=== PATIENT | female | born 1965 | race Caucasian/White ===

== ENCOUNTER 2018-01-08 11:46 | Observation (INO) | payer BC ==
[2018-01-08] VITALS (8 sets, daily range): BP systolic 124–187; BP diastolic 65–105; Ht 162.6 cm; Wt 77.3 kg
[~2018-01-08] VITALS: Ht 162.6 cm; Wt 77.3 kg
--- NOTE | ~2018-01-08 | MORECARE ---
CASE MANAGEMENT DISCHARGE SUMMARY PATIENT: DELORIS JENNINGS UNIT: [id number] ADM DATE: 01/08/18 AGE: 52 : 67 SEX: F ROOM/BED: D.1459 AUTHOR: [place] MOORE PHYSICIAN: REFERRING PHYSICIAN: DARRIN LOUIE MD DATE OF SERVICE: 01/10/18 Discharge Plan Patient Name: DELORIS JENNINGS Facility: [facility]:[place] : 1965 Planned Disposition: Home Anticipated Discharge Date: 01/09/18 Discharge Date: 01/09/2018 Expected LOS: 1 Initial Reviewer: [email or web address] Initial Review Date: 01/10/2018 Generated: 01/10/18 10:06 am Patient Name: DELORIS JENNINGS Page [id number] at 0906 All edits/amendments must be made on the electronic document DICTATION DATE: 01/10/18904 GIS ANALYST: NEDRA 01/10/18904 RPT#: [id number] DC DATE:01/09/18 STATUS: DIS IN [facility] [address] [place] [address] END OF REPORT
--- NOTE | ~2018-01-08 | HEMODYNAMI ---
PATIENT:DELORIS JENNINGS MEDICAL RECORD: [id number] : 67 [facility] [id number] ADMISSION DATE: 01/08/18 Generatedon:01/09/201810:01 Patient name: DELORIS JENNINGS Patient #: [id number] SSN: : 1965 Date of study: 01/09/2018 Page: Of Hemodynamic Procedure Report Patient Data Patient Demographics Procedure consent was obtained First Name: DELORIS Gender: Female Last Name: MICHAELA : 1965 Middle Initial: L Age: 52 year(s) Patient #: [id number] Race: Unknown Additional ID: [id number] Contact details [address]: [address] [place] [address] State: [place] City: [place] Zip code: [address] Past Medical History Allergies Allergen Reaction Date Comments Reported Other allergy 01/09/2018 ZITHROMAX, CIPRO, CODEINE, MORPHINE, PCN, SULFA Admission Admission Data Admission Date: 01/08/2018 Admission Time: 15:29 Room #: D.2129 Height (in.): 77 Height (cm.): 195.58 Procedure Procedure Types Cath Procedure Diagnostic Procedure C LH w/Coronaries Procedure Description Procedure Date Procedure Date: 01/09/2018 Procedure Start Time: 9:44 Procedure End Time: 9:58 Procedure Staff Name Function Alberto Sotomayor MD Performing Physician Ana Dailey RT Monitor Sonia Matias RT Scrub Jose Antonio Scruggs RN Nurse Gallo Mack RN Baseball Winder Procedure Data Cath Procedure Fluoroscopy Diagnostic fluoroscopy Total fluoroscopy Time: 1.8 time: 1.8 min min Diagnostic fluoroscopy Total fluoroscopy dose: 448 dose: 448 mGy mGy Contrast Material Contrast Material Type Amount (ml) Isovue 300 60 Entry Location Entry Primary Successful Side Size Upsize Upsize Entry Closure Succes sful Closure Location (Fr) 1 (Fr) 2 (Fr) Remarks Device Remarks Femoral Right 5 Fr Exoseal artery Estimated blood loss: 5 ml Diagnostic catheters Device Type Used For End Catheter Placement MULTIPACK JL 4.0 5Fr Procedure catheter MULTIPACK 3DRC 5Fr Procedure catheter MULTIPACK Pigtail 5 Fr Procedure catheter Procedure Complications No complications Procedure Medications Medication Administration Route Dosage 0.9% NaCl I.V. 100 ml/hr Oxygen etCO2 Nasal cannula 2 l/min Heparin Flush Bag added to field 2 bags (1000units/500ml NS) Lidocaine 2% added to field 20 Versed I.V. 2 mg Fentanyl I.V. 100 mcg Versed I.V. 2 mg Fentanyl I.V. 50 mcg Hemodynamics Rest Heart Rate: 79 (bpm) Pressure Samples Time Site Value (mmHg) Purpose Heart Use Rate(bpm) 9:52 LV 127/-20,4 Snapshot 75 Gradients Valve Time Site Site Mean SEP/DFP Peak To Heart Use 1 2 (mmHg) (sec/min) Peak Rate (mmHg) (bpm) Aortic 9:52 LV AO 77 Snapshots Pre Cath Intra NCS Post Cath Vital Signs Time Heart Resp SPO2 etCO2 NIBP (mmHg) Rhythm Pain Sedation Rate (ipm) (%) (mmHg) Status Level (bpm) 9:31:23 75 20 100 0 162/101(132) NSR 0 (11) 10(A) , No pain 9:35:39 74 29 100 0 165/92(134) NSR 0 (11) 10(A) , No pain 9:40:01 68 17 100 0 140/82(119) NSR 0 (11) 10(A) , No pain 9:44:13 70 19 100 0 131/82(106) NSR 0 (11) 10(A) , No pain 9:48:23 71 15 99 0 119/77(93) NSR 0 (11) 9(A) , No pain 9:52:29 76 15 100 0 123/72(89) NSR 0 (11) 9(A) , No pain 9:56:35 73 15 100 0 135/76(104) NSR 0 (11) 9(A) , No pain Medications Time Medication Route Dose Verified Delivered Reason Notes Effe ctiveness by by 9:39:14 0.9% NaCl I.V. 100 Jose Antonio Jose Antonio Per ml/hr Sheba Scruggs physician RN RN 9:39:24 Oxygen etCO2 2 Jose Antonio Jose Antonio Per Nasal l/min Lorigan Lorigan physician cannula RN RN 9:39:35 Heparin Flush added 2 Jose Antonio Jose Antonio used for Bag to bags Lorigan Lorigan procedure (1000units/500ml field RN RN NS) 9:39:46 Lidocaine 2% added 20ml Jose Antonio Jose Antonio for local to vial Lorigan Lorigan anesthetic field RN RN 9:41:12 Versed I.V. 2 mg Jose Antonio Jose Antonio for Lorigan Lorigan sedation RN RN 9:41:21 Fentanyl I.V. 100 Jose Antonio Jose Antonio for mcg Lorigan Lorigan sedation RN RN 9:46:48 Versed I.V. 2 mg Jose Antonio Jose Antonio for Lorigan Lorigan sedation RN RN 9:46:55 Fentanyl I.V. 50 Jose Antonio Jose Antonio for mcg Lorigan Lorigan sedation RN account services specialist Log Time Note 8:55:10 Signed procedure consent form obtained from patient. 8:55:12 Diagnostic Cath status Elective 8:58:09 H&P Date Dictated: 01/08/2018 Within 30 days and on chart.. 9:00:10 Patient allergic to Other allergyZITHROMAX, CIPRO, CODEINE, MORPHINE, PCN, SULFA 9:00:15 ACC The patient was administered the following blood thiners within the last 24 hours: ACCPlavix 9:00:44 600MG PLAVIX 01/08 @1606 9:01:13 Patient Height : 77 inches 9:11:26 Gallo Mack RN sent for patient. Start room use. 9:11:29 Time tracking: Regular hours (M-F 7:00 - 5:00) 9:11:32 Plan of Care:Hemodynamics will remain stable., Cardiac rhythm will remain stable., Comfort level will be maintained., Respiratory function will remain adequate., Patient/ family verbilizes understanding of procedure., Procedure tolerated without complication., Recovers from procedure without complications.. 9:25:13 Patient received from Med II to CCL 1 Alert and oriented. Tansferred to table in Supine position. 9:25:15 Warm blankets applied, and deshawn hugger turned on for patient comfort. 9:25:15 Correct patient and procedure confirmed by team. 9:25:16 ECG and BP/O2 sat monitors applied to patient. 9:30:16 Vital chart was started 9:30:17 Baseline sample Acquired. 9:30:21 Rhythm: sinus rhythm 9:30:23 Full Disclosure recording started 9:30:23 Pre-procedure instructions explained to patient. 9:30:24 Pre-op teaching completed and patient verbalized understanding. 9:30:25 Family in patients room. 9:30:28 Patient NPO since Midnight. 9:30:29 Is the patient allergic to Iodine/contrast media? No. 9:30:30 Was the patient premedicated? No 9:30:31 Is patient on blood thinner?No 9:30:32 Patient diabetic? No. 9:30:35 Previous problem with sedation/anesthesia? No ' 9:30:38 Snore? Yes 9:30:39 Sleep apnea? No 9:30:39 Deviated septum? No 9:30:40 Opens mouth fully? Yes 9:30:41 Opens mouth fully? No 9:30:42 Sticks out tongue? Yes 9:30:44 Airway obstruction? No ? 9:30:47 Dentures? No ? 9:30:50 Pre procedure: right dorsailis pedis pulse 2+ Normal; easily identifiable; not easily obliterated 9:30:52 Pre procedure: left dorsailis pedis pulse 2+ Normal; easily identifiable; not easily obliterated 9:30:55 Patient pain scale 0/10 ?. 9:31:04 IV patent on arrival in right forearm with 0.9% NaCl at [facility]. 9:31:07 Lab results completed and on chart. 9:31:11 Right groin area was prepped with chlora-prep and draped in sterile fashion 9:31:12 Alarms reviewed by R. N. 9:31:12 Sharps counted by scrub and verified by R.N. 9:39:14 0.9% NaCl 100 ml/hr I.V. was administered by Jose Antonio Scruggs RN; Per physician; 9:39:21 Use device set Femoral Dx 9:39:22 ACIST Syringe (17082) opened to sterile field. 9:39:23 Bag Decanter (2002) opened to sterile field. 9:39:24 Oxygen 2 l/min etCO2 Nasal cannula was administered by Jose Atnonio Scruggs RN; Per physician; 9:39:24 ACIST Hand Control (61857) opened to sterile field. 9:39:24 ACIST Manifold (25527) opened to sterile field. 9:39:25 Tegaderm 4 x 4 (1626W) opened to sterile field. 9:39:34 Medline Cath Pack ([id number]) opened to sterile field. 9:39:34 DIAGNOSTIC WIRE .035 260cm J wire (881581) opened to sterile field. 9:39:35 Heparin Flush Bag (1000units/500ml NS) 2 bags added to field was administered by Jose Antonio Scruggs RN; used for procedure; 9:39:36 DIAGNOSTIC Multipack 5Fr catheter set ([id number]) opened to sterile field. 9:39:46 Lidocaine 2% 20ml vial added to field was administered by Jose Antonio Scruggs RN; for local anesthetic; 9:39:56 SHEATH 5FR [place] ([id number]) opened to sterile field. 9:40:37 --------ALL STOP TIME OUT------ 9:40:37 Final Timeout: patient, procedure, and site verified with staff and physician. All members of the team are in agreement. 9:40:40 Right groin site verified by team. 9:40:42 Physical assessment completed. ASA score P 2 - A patient with mild systemic disease as per Alberto Sotomayor MD. 9:40:45 Sedation plan: IV Moderate Sedation Medication:Versed, Fentanyl 9:41:12 Versed 2 mg I.V. was administered by Jose Antonio Scruggs RN; for sedation; 9:41:21 Fentanyl 100 mcg I.V. was administered by Jose Antonio Scruggs RN; for sedation; 9:43:30 Procedure started. 9:44:38 Local anesthetic to right femoral artery with Lidocaine 2% by Alberto Sotomayor MD.INITIAL ACCESS ONLY 9:44:48 Zero performed for pressure channel P1 9:45:18 A 5 Fr sheath was inserted into the Right Femoral artery 9:46:20 A MULTIPACK JL 4.0 5Fr catheter was advanced over the wire and used for Procedure. 9:46:48 Versed 2 mg I.V. was administered by Jose Antonio Scruggs RN; for sedation; 9:46:55 Fentanyl 50 mcg I.V. was administered by Jose Antonio Scruggs RN; for sedation; 9:47:43 LCA angiography performed. 9:48:56 Catheter exchanged over wire. 9:49:08 Zero performed for pressure channel P1 9:49:39 A MULTIPACK 3DRC 5Fr catheter was advanced over the wire and used for Procedure. 9:50:25 RCA angiography performed. 9:50:40 Catheter exchanged over wire. 9:51:05 A MULTIPACK Pigtail 5 Fr catheter was advanced over the wire and used for Procedure. 9:51:43 LV gram done using PLUMMER 9:51:47 Injector settings: Ml/sec: 102, Volume: 0, 9:52:11 LV hemodynamics recorded. 9:52:19 EF : 55 % 9:52:53 Catheter removed. 9:53:14 EXOSEAL 5Fr (EX500) opened to sterile field. 9:54:07 Sheath removed intact; hemostasis achieved with Exoseal to the Right Femoral artery. 9:54:10 Procedure ended.(Physican Out) 9:56:12 Fluoroscopy time 01.80 minutes. 9:56:15 Fluoroscopy dose: 448 mGy 9:56:15 Flurop Dose total: 448 9:56:25 Contrast amount:Isovue 300 60ml. 9:56:28 Post-op/insertion site Right Femoral artery dressed using a 4 x 4 and Tegaderm. 9:56:32 Post right femoral artery:stable, soft, clean and dry 9:56:39 Post-procedure physical assessment completed. ASA score P 2 - A patient with mild systemic disease as per Alberto Sotomayor MD. 9:56:44 Post procedure rhythm: sinus rhythm 9:56:47 Estimated blood loss: 5 ml 9:56:48 Post procedure instruction explained to patient.Patient verbalizes understanding. 9:56:49 Patient needs reinforcement of post procedure teaching. 9:57:53 Procedure and supply charges have been captured, reviewed, submitted and are correct. 9:58:03 Procedure Complication : No complications 9:58:05 Vital chart was stopped 9:58:06 See physician's report for complete and final results. 9:58:08 Report given to [facility]. 9:58:10 Patient transfered to [facility] with Bed. 9:58:12 Procedure ended. 9:58:12 Full Disclosure recording stopped 9:58:15 End room use (Document Last) Device Usage Item Name Manufacture Quantity Catalog Hospital Part Current Minimal L ot# / Number Charge Number Stock Stock Serial# Code ACIST Acist 1 41413 239749 938022 829283 20 [employer] (55578) TITIN Tech Bag Microtek 1 991680 29865 038960 5 Decanter [employer] Inc[employer] () ACIST Hand Acist 1 44491 236107 381830 308076 5 Control Medical (48460) Systems Inc ACIST Acist 1 56601 399703 538764 135617 5 Manifold Medical (01678) Systems Inc Tegaderm 4 3M 1 1626W 950418 322640 164038 5 x 4 (1626W) Medline Medline 1 [id number] 148611 39452 180952 5 Cath Pack ([id number]) DIAGNOSTIC St Gopal 1 302334 589697 519488 460584 30 WIRE .035 260cm J wire (375205) DIAGNOSTIC Cardinal 1 AQ5984 919120 88897 705350 30 Multipack Health 5Fr catheter set (EY4282) SHEATH 5FR Terumo 1 MDR414 287233 599112 833185 40 [place] (DIW829) MULTIPACK Cardinal 1 601653 5 JL 4.0 5Fr Health catheter MULTIPACK Cardinal 1 349602 5 3DRC 5Fr Health catheter MULTIPACK Cardinal 1 839546 5 Pigtail 5 Health Fr catheter EXOSEAL 5Fr Cardinal 1 EX500 424004 967838 744271 10 (EX500) Health Signature Audit Reinbeck Stage Time Signature Unsigned Intra-Procedure 01/09/2018 Ana Dailey 10:01:07 AM RT(R) Signatures Monitor : Ana Dailey Signature : RT Date : Time : [facility] [address] [place] [address]
[2018-01-08] MEDS ORDERED: PROTONIX40 MG PO (11:50)
[2018-01-08] MEDS ORDERED: AMBIEN10 MG PO (11:50)
[2018-01-08 12:35] LABS: EOSINOPHILS 1.9 % (0-7); HEMOGLOBIN 14.1 g/dL (12-16); IMMATURE GRANULOCYTES 0.5 % (0-5); LYMPHOCYTES 25.8 % (15-50); MCH 29.2 pg (26.0-34.0); MCHC 33.6 g/dL (31.0-37.0); MEAN PLATELET VOLUME 9.4 fL (7.4-10.4); MONOCYTES 9.4 % (2-11); NEUTROPHILS 61.4 % (40-80); PLATELET COUNT 335 10x3/uL (130-400); RBC 4.83 10x6/uL (4.00-5.40); RDW 13.6 % (11.5-14.5); WBC 10.8 10x3/uL (4.8-10.8)
[2018-01-08 12:50] LABS: ALBUMIN 3.8 g/dL (3.4-5.0); ALKALINE PHOSPHATASE 99 U/L (46-116); ALT (SGPT) 37 U/L (10-68); CALC OSMOLALITY 280 mosm/kg (275-300); CALCIUM 9.7 mg/dL (8.5-10.1); CARBON DIOXIDE 30.4 mmol/L (21.0-32.0); CHLORIDE - SERUM 103 mmol/L (98-107); CREATININE - SERUM 0.8 mg/dL (0.6-1.3); GLUCOSE 90 mg/dL (74-106); POTASSIUM - SERUM 4.4 mmol/L (3.5-5.1); PROTEIN - SERUM 7.2 g/dL (6.4-8.2); SODIUM 141 mmol/L (136-145); UREA NITROGEN 12 mg/dL (7-18); eGFR NON AFRICAN AMERICAN 80 mL/min (90-120)
[2018-01-08 12:51] LABS: APTT 26.5 SECONDS (22.8-39.4); INR 0.78 (0.85-1.17); PROTIME 10.5 SECONDS (11.6-15.0)
[2018-01-08 13:01] LABS: CKMB 0.7 U/L (0.0-3.6); CREATINE KINASE 73 UL (21-215); MAGNESIUM - SERUM 1.9 mg/dL (1.8-2.4)
[2018-01-08 13:03] LABS: TROPONIN-I < 0.017 ng/mL (0.000-0.060)
[2018-01-08 16:24] LABS: CKMB 0.4 U/L (0.0-3.6); CREATINE KINASE 63 UL (21-215)
[2018-01-08 16:36] LABS: TROPONIN-I < 0.017 ng/mL (0.000-0.060)
[2018-01-08] MEDS ORDERED: LEXAPRO20 MG PO (18:27)
[2018-01-08 21:59] LABS: CKMB 0.9 U/L (0.0-3.6); CREATINE KINASE 54 UL (21-215); TROPONIN-I < 0.017 ng/mL (0.000-0.060)
[2018-01-09] VITALS: BP 140/77
[2018-01-09 04:00] VITALS: BP 121/61
[2018-01-09 04:10] LABS: BASOPHILS 0.9 % (0-2); EOSINOPHILS 0.9 % (0-7); HEMATOCRIT 40.6 % (36.0-48.0); HEMOGLOBIN 13.7 g/dL (12-16); IMMATURE GRANULOCYTES 0.3 % (0-5); LYMPHOCYTES 17.4 % (15-50); MCH 29.1 pg (26.0-34.0); MCHC 33.7 g/dL (31.0-37.0); MCV 86.4 fL (80.0-100.0); MEAN PLATELET VOLUME 9.3 fL (7.4-10.4); MONOCYTES 10.5 % (2-11); PLATELET COUNT 292 10x3/uL (130-400); RDW 13.5 % (11.5-14.5); WBC 9.6 10x3/uL (4.8-10.8)
[2018-01-09 04:37] LABS: ALBUMIN 3.4 g/dL (3.4-5.0); ALKALINE PHOSPHATASE 127 U/L (46-116); ALT (SGPT) 58 U/L (10-68); BILIRUBIN - TOTAL 0.76 mg/dL (0.2-1.3); CALC OSMOLALITY 276 mosm/kg (275-300); CALCIUM 8.8 mg/dL (8.5-10.1); CARBON DIOXIDE 27.6 mmol/L (21.0-32.0); CHLORIDE - SERUM 103 mmol/L (98-107); CKMB 0.5 U/L (0.0-3.6); CREATINE KINASE 58 UL (21-215); CREATININE - SERUM 0.8 mg/dL (0.6-1.3); GLUCOSE 96 mg/dL (74-106); POTASSIUM - SERUM 4.5 mmol/L (3.5-5.1); PROTEIN - SERUM 6.4 g/dL (6.4-8.2); SODIUM 139 mmol/L (136-145); TROPONIN-I < 0.017 ng/mL (0.000-0.060); UREA NITROGEN 10 mg/dL (7-18); eGFR NON AFRICAN AMERICAN 80 mL/min (90-120)
[2018-01-09 08:10] VITALS: BP 134/91
[2018-01-09 11:17] VITALS: BP 134/91
[2018-01-09 11:19] VITALS: BP 123/78
[2018-01-09] MEDS ORDERED: ASPIRIN325 MG PO (11:19)
== END 2018-01-09 14:53 | disposition home or self-care (01) ==
LOC: D.ER 11:46 → D.EDHOLD 15:29 → D.M2 15:29 → OBSVTIME 15:30 → D.M2 16:46
PROVIDERS: Family Medicine
DX: R07.89 Other chest pain (principal); K31.84 Gastroparesis; M79.7 Fibromyalgia; K21.9 Gastro-esophageal reflux disease without esophagitis; I10 Essential (primary) hypertension; R94.31 Abnormal electrocardiogram [ECG] [EKG]

== ENCOUNTER → 2019-07-27 10:44 | Outpatient (CLI) | payer BC ==
[2018-01-08 18:29] VITALS: BMI 29.2
[~2019-07-27 10:44] MED LIST: AMBIEN10 MG PO; ASPIRIN325 MG PO; LEXAPRO20 MG PO; PROTONIX40 MG PO
== END | disposition home or self-care (01) ==
LOC: D.NM 10:44
PROVIDERS: ATTEND Surgery
DX: K31.84 Gastroparesis (principal); R11.2 Nausea with vomiting, unspecified; Z96.89 Presence of other specified functional implants